=== PATIENT | male | born 1945 | race Caucasian/White ===

== ENCOUNTER 2021-10-06 15:32 | Inpatient (IN) ==
[2021-10-06] MEDS ORDERED: Acetaminophen 325 MG TABLET PO PRN (20:19)
[2021-10-06] MEDS ORDERED: Melatonin 3 MG TABLET PO PRN (20:19)
[2021-10-06] MEDS ORDERED: Naloxone 0.4 MG/ML INJ IVP PRN (20:19)
[2021-10-06 21:14] LABS: Troponin I < 0.03 ng/mL (< 0.04)
[2021-10-06] MEDS ORDERED: Perflutren Lipid Microsphere 1.3 ML in 0.9 % Sodium Chloride 8.7 ML IVP PRN (21:42)
[2021-10-06] MEDS ORDERED: *HR* Dextrose 50 % in Water (Syg) 50 ML SYRINGE IVP PRN (21:45)
[2021-10-06] MEDS ORDERED: D5% in Water 1,000 ML IVC PRN (21:45)
[2021-10-06] MEDS ORDERED: Dextrose 4 GM Chewable Tablets PO PRN ×2 (21:45)
[2021-10-06 22:18] LABS: Folate 18.1 ng/mL (3.0-16.0)
[2021-10-06 23:15] LABS: Procalcitonin 5.55 ng/mL (0.00-0.15)
[2021-10-06] MEDS ORDERED: Furosemide 20 MG/2 ML VIAL IVP ONE (23:15)
[2021-10-06 23:34] LABS: Adenovirus Not Detected (Not Detect); Bordetella Pertussis Not Detected (Not Detect); Chlamydophila pneumoniae Not Detected (Not Detect); Coronavirus 229E Not Detected (Not Detect); Coronavirus HKU1 Not Detected (Not Detect); Coronavirus NL63 Not Detected (Not Detect); Coronavirus OC43 Not Detected (Not Detect); Human Metapneumovirus Not Detected (Not Detect); Human Rhinovirus/Enterovirus Not Detected (Not Detect); Influenza A Subtype 2009 H1 Not Detected (Not Detect); Influenza B Not Detected (Not Detect); Mycoplasma pneumoniae Not Detected (Not Detect); Parainfluenza Virus 1 Not Detected (Not Detect); Parainfluenza Virus 2 Not Detected (Not Detect); Parainfluenza Virus 3 Not Detected (Not Detect); Parainfluenza Virus 4 Not Detected (Not Detect); Respiratory Syncytial Virus Not Detected (Not Detect); SARS-CoV-2 Not Detected (Not Detect)
[2021-10-06 23:51] LABS: Bilirubin,Urine Negative (Negative); Blood,Urine Negative (Negative); Clarity,Urine Clear (Clear); Color,Urine Light-Yellow (Yellow); Glucose,Urine (UA) Normal (Normal); Ketones,Urine Negative (Negative); Leukocyte Esterase,Urine Negative (Negative); Nitrite,Urine Negative (Negative); PH,Urine 5.5 pH Units (5.0-8.0); Protein,Urine Trace mg/dL (Neg-Trace); Urobilinogen,Urine Normal (Normal)
[2021-10-06] MEDS: Budesonide/Formoterol 160/4.5 1 PUFF INH IH SCH (23:55)
[2021-10-06] MEDS: Ipratropium/Albuterol Neb 3 ML IH SCH (23:55)
[2021-10-07] LABS: Amphetamine Screen,Urine Negative ng/mL (Cutoff=1000); Barbiturate Screen,Urine Negative ng/mL (Cutoff=200); Benzodiazepines Screen,Urine Negative ng/mL (Cutoff=200); Cannabinoid Screen,Urine Negative ng/mL (Cutoff = 50); Cocaine Screen,Urine Negative ng/mL (Cutoff= 300); Opiate Screen,Urine Negative ng/mL (Cutoff=300); Phencyclidine Screen,Urine Negative ng/mL (Cutoff=25)
[2021-10-07] MEDS: Piperacillin/Tazobactam 3.375 GM in 0.9 % Sodium Chloride Mini Bag 100 ML IVPB SCH ×4 (00:29→23:26)
[2021-10-07 02:01] LABS: Basophils % 0.1 %; Eosinophils % 0.2 %; Hematocrit 32.5 % (37.5-50.1); Hemoglobin 10.4 g/dL (12.9-16.9); Immature Granulocytes % 0.5 % (0-4); Lymphocytes # 0.7 K/mcL (0.6-4.6); Lymphocytes % 3.9 %; Mean Corpuscular Hemoglobin 27.2 pg (28.0-33.3); Mean Corpuscular Volume 85.1 fL (83.0-100.0); Mean Platelet Volume 8.9 fL (9.4-12.4); Monocytes # 0.5 K/mcL (0.0-1.3); Monocytes % 2.8 %; Platelet Count 153 K/mcL (140-400); Red Blood Count 3.82 M/mcL (4.19-5.50); Red Cell Distribution Width 17.2 % (11.5-14.5); Segmented Neutrophils % 92.5 %; White Blood Count 16.6 K/mcL (4.3-11.1)
[2021-10-07 02:05] LABS: Neutrophils # 15.4 K/mcL (1.6-8.9)
[2021-10-07 02:11] LABS: INR 1.3; Prothrombin Time 14.9 Seconds (9.4-12.1)
[2021-10-07 02:13] LABS: Activated Partial Thrombo Time 29.3 Seconds (26.0-36.0)
[2021-10-07 02:19] LABS: Acetaminophen < 10 mcg/mL (10-20); Ethanol < 10 mg/dL (Less than 10); Salicylate < 2.5 mg/dL (15.0-30.0)
[2021-10-07 02:20] LABS: Chol/HDL Ratio 2.1 (0-4.9)
[2021-10-07 02:26] LABS: Platelet Estimate Normal (Normal)
[2021-10-07 02:30] LABS: Calcium 8.7 mg/dL (8.6-10.3); Magnesium 1.8 mg/dL (1.6-2.6); Phosphorous 3.4 mg/dL (2.7-4.5); Potassium 3.7 mEq/L (3.5-5.1); Troponin I 0.04 ng/mL (< 0.04)
[2021-10-07] MEDS: Ipratropium/Albuterol Neb 3 ML IH SCH ×6 (04:17→23:39)
[2021-10-07] MEDS: Insulin LISPRO 300 UNITS/3 ML VIAL SUBQ SCH ×3 (07:11→16:49)
[2021-10-07] MEDS: Budesonide/Formoterol 160/4.5 1 PUFF INH IH SCH ×2 (07:52→19:51)
[2021-10-07] MEDS: Aspirin 81 MG TAB.CHEW PO SCH (08:08)
[2021-10-07] MEDS: Multivit/Ca/Min/Fe/FA 1 TAB TABLET PO SCH (08:08)
[2021-10-07] MEDS: predniSONE 20 MG TABLET PO SCH (08:08)
[2021-10-07] MEDS: Lactobacillus 1 EACH CAP.SPRINK PO SCH ×2 (08:08→20:25)
[2021-10-07 08:09] LABS: ABG Base Excess 2 mEq/L (-2 to 3); ABG HCO3 26 mEq/L (21-27); ABG Oxygen Saturation 97 % (95-98); ABG PCO2 39 mmHg (35-45); ABG PH 7.43 pH Units (7.32-7.45); ABG PO2 88 mmHg (85-104); ABG TCO2 27 mEq/L (20-26)
[2021-10-07] MEDS: carvediloL 6.25 MG TABLET PO SCH ×2 (08:09→16:48)
[2021-10-07] MEDS: Saliva Stimulant 44.3ml BOTTLE PO SCH ×4 (08:10→20:24)
[2021-10-07] MEDS: Artificial Tears SOLN 15 ML BOTTLE BOTH EYES SCH ×4 (08:10→20:24)
[2021-10-07] MEDS: Saline Nasal Spray 44 ML BOTTLE NS SCH ×4 (08:10→20:24)
[2021-10-07] MEDS: Chlorhexidine Rinse 15 ML MOUTHWASH MM SCH ×2 (08:13→20:25)
[2021-10-07] MEDS: Furosemide 20 MG/2 ML VIAL IVP SCH ×2 (08:14→20:25)
[2021-10-07] MEDS: Vancomycin 1,750 MG/517.5 ML IV.SOLN IVPB SCH (08:33)
[2021-10-07 10:19] LABS: Estimated Average Glucose 140 mg/dl; Hemoglobin A1C 6.5 %
[2021-10-07] MEDS ORDERED: Fluconazole 100 MG TABLET PO SCH ×2 (14:00→15:00)
[2021-10-07] MEDS: *HR* Heparin 5,000 UNIT/ML VIAL SQ SCH ×2 (14:48→20:25)
[2021-10-08 03:01] LABS: Basophils % 0.1 %; Eosinophils % 0.1 %; Hematocrit 31.7 % (37.5-50.1); Hemoglobin 10.2 g/dL (12.9-16.9); Immature Granulocytes % 0.6 % (0-4); Lymphocytes # 0.6 K/mcL (0.6-4.6); Lymphocytes % 4.2 %; Mean Corpuscular HGB Conc 32.2 g/dL (31.6-35.5); Mean Corpuscular Volume 83.9 fL (83.0-100.0); Monocytes # 0.4 K/mcL (0.0-1.3); Monocytes % 3.1 %; Neutrophils # 12.7 K/mcL (1.6-8.9); Platelet Count 183 K/mcL (140-400); Red Blood Count 3.78 M/mcL (4.19-5.50); Red Cell Distribution Width 17.4 % (11.5-14.5); Segmented Neutrophils % 91.9 %; White Blood Count 13.9 K/mcL (4.3-11.1)
[2021-10-08 03:26] LABS: Albumin 3.7 g/dL (3.5-5.7); Albumin/Globulin Ratio 1.2 (1.1-2.2); Bilirubin,Total 0.4 mg/dL (0.3-1.0); Globulin 3.1 g/dL (2.4-3.5); Potassium 3.7 mEq/L (3.5-5.1); Total Protein 6.8 g/dL (6.4-8.9)
[2021-10-08] MEDS: Ipratropium/Albuterol Neb 3 ML IH SCH ×5 (03:46→20:06)
[2021-10-08] MEDS: *HR* Heparin 5,000 UNIT/ML VIAL SQ SCH ×3 (05:43→20:57)
[2021-10-08] MEDS: Insulin LISPRO 300 UNITS/3 ML VIAL SUBQ SCH ×3 (07:34→17:34)
[2021-10-08] MEDS: Saline Nasal Spray 44 ML BOTTLE NS SCH ×4 (08:33→20:57)
[2021-10-08] MEDS: Lactobacillus 1 EACH CAP.SPRINK PO SCH ×2 (08:33→20:57)
[2021-10-08] MEDS: predniSONE 20 MG TABLET PO SCH (08:33)
[2021-10-08] MEDS: Saliva Stimulant 44.3ml BOTTLE PO SCH ×4 (08:33→20:57)
[2021-10-08] MEDS: Aspirin 81 MG TAB.CHEW PO SCH (08:33)
[2021-10-08] MEDS: Multivit/Ca/Min/Fe/FA 1 TAB TABLET PO SCH (08:33)
[2021-10-08] MEDS: carvediloL 6.25 MG TABLET PO SCH ×2 (08:33→17:32)
[2021-10-08] MEDS: Artificial Tears SOLN 15 ML BOTTLE BOTH EYES SCH ×4 (08:33→20:57)
[2021-10-08] MEDS: Chlorhexidine Rinse 15 ML MOUTHWASH MM SCH ×2 (08:34→20:57)
[2021-10-08] MEDS: Vancomycin 1,750 MG/517.5 ML IV.SOLN IVPB SCH (08:35)
[2021-10-08] MEDS: Piperacillin/Tazobactam 3.375 GM in 0.9 % Sodium Chloride Mini Bag 100 ML IVPB SCH ×3 (08:37→23:07)
[2021-10-08] MEDS: Furosemide 20 MG/2 ML VIAL IVP SCH ×2 (08:41→20:57)
[2021-10-08] MEDS: Budesonide/Formoterol 160/4.5 1 PUFF INH IH SCH ×2 (11:18→20:06)
[2021-10-08 19:00] LABS: Uric Acid 4.6 mg/dL (2.3-7.6)
[2021-10-08 21:04] LABS: Sodium, Urine 73.7 mEq/L
[2021-10-08] MEDS: Albumin 25% 25gram/100mL 25 GM/100 ML IV.SOLN IVPB SCH (23:07)
[2021-10-09] MEDS: Ipratropium/Albuterol Neb 3 ML IH SCH ×8 (00:01→23:43)
[2021-10-09] MEDS: *HR* Heparin 5,000 UNIT/ML VIAL SQ SCH ×3 (05:15→21:31)
[2021-10-09 05:26] LABS: Basophils % 0.2 %; Eosinophils % 0.1 %; Hematocrit 31.1 % (37.5-50.1); Hemoglobin 9.9 g/dL (12.9-16.9); Immature Granulocytes % 0.6 % (0-4); Lymphocytes # 0.7 K/mcL (0.6-4.6); Lymphocytes % 6.4 %; Mean Corpuscular HGB Conc 31.8 g/dL (31.6-35.5); Mean Corpuscular Hemoglobin 26.8 pg (28.0-33.3); Mean Corpuscular Volume 84.3 fL (83.0-100.0); Mean Platelet Volume 8.8 fL (9.4-12.4); Monocytes # 0.5 K/mcL (0.0-1.3); Monocytes % 4.6 %; Neutrophils # 9.7 K/mcL (1.6-8.9); Platelet Count 180 K/mcL (140-400); Red Blood Count 3.69 M/mcL (4.19-5.50); Red Cell Distribution Width 17.3 % (11.5-14.5); Segmented Neutrophils % 88.1 %
[2021-10-09 05:43] LABS: Albumin 3.6 g/dL (3.5-5.7); Albumin/Globulin Ratio 1.2 (1.1-2.2); Bilirubin,Total 0.4 mg/dL (0.3-1.0); Calcium 9.1 mg/dL (8.6-10.3); Potassium 3.4 mEq/L (3.5-5.1); Total Protein 6.6 g/dL (6.4-8.9)
[2021-10-09] MEDS: Budesonide/Formoterol 160/4.5 1 PUFF INH IH SCH ×2 (07:43→20:44)
[2021-10-09] MEDS: Insulin LISPRO 300 UNITS/3 ML VIAL SUBQ SCH ×3 (08:34→16:18)
[2021-10-09] MEDS: Furosemide 20 MG/2 ML VIAL IVP SCH ×2 (08:34→21:31)
[2021-10-09] MEDS: Albumin 25% 25gram/100mL 25 GM/100 ML IV.SOLN IVPB SCH ×3 (08:35→23:35)
[2021-10-09] MEDS: Piperacillin/Tazobactam 3.375 GM in 0.9 % Sodium Chloride Mini Bag 100 ML IVPB SCH ×3 (08:35→23:36)
[2021-10-09] MEDS: Chlorhexidine Rinse 15 ML MOUTHWASH MM SCH ×2 (08:35→21:31)
[2021-10-09] MEDS: Saline Nasal Spray 44 ML BOTTLE NS SCH ×4 (08:35→21:31)
[2021-10-09] MEDS: Saliva Stimulant 44.3ml BOTTLE PO SCH ×4 (08:37→21:31)
[2021-10-09] MEDS: Artificial Tears SOLN 15 ML BOTTLE BOTH EYES SCH ×4 (08:37→21:30)
[2021-10-09] MEDS: Aspirin 81 MG TAB.CHEW PO SCH (08:37)
[2021-10-09] MEDS: Multivit/Ca/Min/Fe/FA 1 TAB TABLET PO SCH (08:37)
[2021-10-09] MEDS: carvediloL 6.25 MG TABLET PO SCH ×2 (08:38→16:18)
[2021-10-09] MEDS: Lactobacillus 1 EACH CAP.SPRINK PO SCH ×2 (08:38→21:31)
[2021-10-09] MEDS: predniSONE 20 MG TABLET PO SCH (08:38)
[2021-10-09] MEDS ORDERED: Melatonin 3 MG TABLET PO PRN (10:07)
[2021-10-10] MEDS: Ipratropium/Albuterol Neb 3 ML IH SCH ×6 (04:11→23:55)
[2021-10-10] MEDS: *HR* Heparin 5,000 UNIT/ML VIAL SQ SCH ×3 (06:30→21:29)
[2021-10-10 06:57] LABS: Basophils % 0.2 %; Eosinophils # 0.1 K/mcL (0.0-0.6); Eosinophils % 0.6 %; Hematocrit 31.1 % (37.5-50.1); Hemoglobin 9.7 g/dL (12.9-16.9); Immature Granulocytes % 1.2 % (0-4); Lymphocytes % 9.9 %; Mean Corpuscular HGB Conc 31.2 g/dL (31.6-35.5); Mean Corpuscular Hemoglobin 26.3 pg (28.0-33.3); Mean Corpuscular Volume 84.3 fL (83.0-100.0); Mean Platelet Volume 9.1 fL (9.4-12.4); Monocytes # 0.4 K/mcL (0.0-1.3); Monocytes % 4.3 %; Neutrophils # 8.1 K/mcL (1.6-8.9); Platelet Count 190 K/mcL (140-400); Red Blood Count 3.69 M/mcL (4.19-5.50); Red Cell Distribution Width 17.2 % (11.5-14.5); Segmented Neutrophils % 83.8 %; White Blood Count 9.7 K/mcL (4.3-11.1)
[2021-10-10 07:14] LABS: Albumin 4.2 g/dL (3.5-5.7); Albumin/Globulin Ratio 1.6 (1.1-2.2); Bilirubin,Total 0.5 mg/dL (0.3-1.0); Calcium 9.2 mg/dL (8.6-10.3); Globulin 2.6 g/dL (2.4-3.5); Total Protein 6.8 g/dL (6.4-8.9)
[2021-10-10] MEDS: Insulin LISPRO 300 UNITS/3 ML VIAL SUBQ SCH ×3 (07:46→16:01)
[2021-10-10 08:07] LABS: CMV Quant by PCR IU <227 IU/mL; CMV Quant by PCR Log IU <2.4 log IU/mL; CMV Quant by PCR copies <390 cpy/mL
[2021-10-10] MEDS: Budesonide/Formoterol 160/4.5 1 PUFF INH IH SCH ×2 (08:20→19:33)
[2021-10-10] MEDS: carvediloL 6.25 MG TABLET PO SCH ×2 (08:37→15:59)
[2021-10-10] MEDS: Lactobacillus 1 EACH CAP.SPRINK PO SCH ×2 (08:38→21:28)
[2021-10-10] MEDS: predniSONE 20 MG TABLET PO SCH (08:38)
[2021-10-10] MEDS: Aspirin 81 MG TAB.CHEW PO SCH (08:38)
[2021-10-10] MEDS: Multivit/Ca/Min/Fe/FA 1 TAB TABLET PO SCH (08:38)
[2021-10-10] MEDS: Furosemide 20 MG/2 ML VIAL IVP SCH ×2 (08:39→21:29)
[2021-10-10] MEDS: Albumin 25% 25gram/100mL 25 GM/100 ML IV.SOLN IVPB SCH ×3 (08:42→23:47)
[2021-10-10] MEDS: Piperacillin/Tazobactam 3.375 GM in 0.9 % Sodium Chloride Mini Bag 100 ML IVPB SCH ×3 (08:49→23:49)
[2021-10-10] MEDS: Chlorhexidine Rinse 15 ML MOUTHWASH MM SCH ×2 (08:58→21:30)
[2021-10-10] MEDS: Saline Nasal Spray 44 ML BOTTLE NS SCH ×4 (09:02→21:30)
[2021-10-10] MEDS: Artificial Tears SOLN 15 ML BOTTLE BOTH EYES SCH ×4 (09:33→21:36)
[2021-10-10] MEDS: Saliva Stimulant 44.3ml BOTTLE PO SCH ×4 (09:33→21:30)
[2021-10-10 09:57] LABS: QuantiFERON Mitogen minus NIL 0.06 IU/mL
[2021-10-10 16:51] LABS: A.galactomannan Ag Index 0.04
[2021-10-11] MEDS: Ipratropium/Albuterol Neb 3 ML IH SCH ×5 (04:12→19:27)
[2021-10-11] MEDS: *HR* Heparin 5,000 UNIT/ML VIAL SQ SCH ×2 (05:56→13:03)
[2021-10-11] MEDS: Insulin LISPRO 300 UNITS/3 ML VIAL SUBQ SCH ×2 (07:21→11:45)
[2021-10-11] MEDS: Budesonide/Formoterol 160/4.5 1 PUFF INH IH SCH (07:23)
[2021-10-11] MEDS: carvediloL 6.25 MG TABLET PO SCH (07:36)
[2021-10-11] MEDS: Artificial Tears SOLN 15 ML BOTTLE BOTH EYES SCH ×2 (07:36→11:42)
[2021-10-11] MEDS: Saliva Stimulant 44.3ml BOTTLE PO SCH ×2 (07:36→11:43)
[2021-10-11] MEDS: Piperacillin/Tazobactam 3.375 GM in 0.9 % Sodium Chloride Mini Bag 100 ML IVPB SCH (07:37)
[2021-10-11] MEDS: Saline Nasal Spray 44 ML BOTTLE NS SCH ×2 (07:37→11:42)
[2021-10-11] MEDS: Lactobacillus 1 EACH CAP.SPRINK PO SCH (07:38)
[2021-10-11] MEDS: predniSONE 20 MG TABLET PO SCH (07:38)
[2021-10-11] MEDS: Multivit/Ca/Min/Fe/FA 1 TAB TABLET PO SCH (07:38)
[2021-10-11] MEDS: Aspirin 81 MG TAB.CHEW PO SCH (07:38)
[2021-10-11] MEDS: Furosemide 20 MG/2 ML VIAL IVP SCH (07:43)
[2021-10-11] MEDS: Chlorhexidine Rinse 15 ML MOUTHWASH MM SCH (07:47)
[2021-10-11 08:52] LABS: Basophils % 0.3 %; Eosinophils # 0.1 K/mcL (0.0-0.6); Eosinophils % 0.7 %; Hematocrit 33.1 % (37.5-50.1); Hemoglobin 10.4 g/dL (12.9-16.9); Immature Granulocytes % 1.2 % (0-4); Lymphocytes # 0.8 K/mcL (0.6-4.6); Mean Corpuscular HGB Conc 31.4 g/dL (31.6-35.5); Monocytes # 0.5 K/mcL (0.0-1.3); Monocytes % 5.3 %; Neutrophils # 7.7 K/mcL (1.6-8.9); Platelet Count 175 K/mcL (140-400); Red Blood Count 3.85 M/mcL (4.19-5.50); Red Cell Distribution Width 16.9 % (11.5-14.5); Segmented Neutrophils % 83.5 %; White Blood Count 9.2 K/mcL (4.3-11.1)
[2021-10-11 09:10] LABS: Albumin 4.9 g/dL (3.5-5.7); Bilirubin,Total 0.8 mg/dL (0.3-1.0); Calcium 9.6 mg/dL (8.6-10.3); Globulin 2.5 g/dL (2.4-3.5); Potassium 3.2 mEq/L (3.5-5.1); Total Protein 7.4 g/dL (6.4-8.9)
[2021-10-11 11:00] VITALS: PULSE 74
[2021-10-11 14:45] VITALS: BP 148/77; TEMP 97.5
[2021-10-11 15:17] VITALS: O2SAT 95
[2021-10-11 16:06] LABS: Mycoplasma pneumoniae IgG 0.92 U/L (<=0.09)
[2021-10-11 16:09] LABS: QuantiFERON NIL 0.02 IU/mL; QuantiFERON-TB Gold In-Tube INDETERMINATE (Negative)
[2021-10-11 16:10] LABS: CMV Quant by PCR Interp NOT DETECTED (Not Detected); CMV Quant by PCR Log copies <2.6 log cpy/mL
[2021-10-12] MEDS ORDERED: Furosemide 20 MG TABLET PO SCH (09:00)
== END 2021-10-11 19:49 | disposition home or self-care (01) | DRG 871 ==
LOC: 3BNU → SUATTDRO 19:28
PROVIDERS: ADMIT Internal Medicine; ATTEND Internal Medicine